=== PATIENT | male | born 1975 | race Caucasian/White ===

== ENCOUNTER 2017-05-02 20:26 | Inpatient (IN) | payer MEDICAID ==
[2017-05-02 21:08] VITALS: BMI 20.3
--- NOTE | 2017-05-02 21:15 | C.PDOC ---
Time Seen by Provider: 05/02/17 21:14 Chief Complaint (Nursing): Substance Abuse Past Medical History Vital Signs: Last Vital Signs Temp 97.9 F 05/02/17 21:08 Pulse 60 05/02/17 21:08 Resp 20 05/02/17 21:08 BP 117/62 05/02/17 21:08 Pulse Ox 95 05/02/17 21:08 - Medical History PMH: Denies: Depression - [facility] Procedures INJECT/INFUSE NEC (12/08/13) - Social History Hx Alcohol Use: No Hx Substance Use: No - Immunization History Hx Tetanus Toxoid Vaccination: No Hx Influenza Vaccination: No Hx Pneumococcal Vaccination: No ED Course And Treatment O2 Sat by Pulse Oximetry: 95 Disposition Counseled Patient/Family Regarding: Studies Performed, Diagnosis - Disposition Disposition Time: 21:15
--- NOTE | 2017-05-02 21:40 | C.PDOC ---
History Of Present Illness 42 year old male presents to the ED requesting detox for heroin. 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 Patient has sutures in his head that he states has had for approximately 2 months. Patient denies SI/HI, hallucinations, physical complaints. Time Seen by Provider: 05/02/17 21:14 Chief Complaint (Nursing): Substance Abuse History Per: Patient History/Exam Limitations: no limitations Onset/Duration Of Symptoms: Days Current Symptoms Are (Timing): Still Present Suicide/Self Injury Attempted (Context): None Modifying Factor(s): Other (Heroin) Associated Symptoms: denies: Depression, Suicidal Thoughts, Suicidal Plan Involuntary Hold By: None Recent travel outside of the [place]: No Additional History Per: Patient Past Medical History Reviewed: Historical Data, Nursing Documentation, Vital Signs Vital Signs: Last Vital Signs Temp 97.4 F L 05/02/17 23:30 Pulse 57 L 05/02/17 23:30 Resp 16 05/02/17 23:30 BP 98/62 L 05/02/17 23:30 Pulse Ox 98 05/02/17 23:30 - Medical History PMH: No Chronic Diseases Denies: Depression Surgical History: No Surg Hx - [facility] Procedures INJECT/INFUSE NEC (12/08/13) Family History: States: Unknown Family Hx - Social History Hx Alcohol Use: No Hx Substance Use: No - Immunization History Hx Tetanus Toxoid Vaccination: No Hx Influenza Vaccination: No Hx Pneumococcal Vaccination: No Review Of Systems Constitutional: Negative for: Fever, Chills Cardiovascular: Negative for: Chest Pain Respiratory: Negative for: Shortness of Breath Gastrointestinal: Negative for: Nausea, Vomiting, Abdominal Pain Skin: Negative for: Rash Neurological: Negative for: Weakness, Numbness, Headache Psych: Negative for: Depression, Suicidal ideation Physical Exam - Physical Exam Appears: Non-toxic, No Acute Distress Skin: Normal Color, Warm, Dry Head: Atraumatic, Normacephalic, Other (Sutures in forehead noted) Nose: No Discharge, No Deformity Oral Mucosa: Moist Neck: Normal ROM, Supple Chest: Symmetrical Cardiovascular: Rhythm Regular, No Murmur Respiratory: Normal Breath Sounds, No Rales, No Rhonchi, No Wheezing Gastrointestinal/Abdominal: Soft, No Tenderness, No Guarding, No Rebound Extremity: Normal ROM, No Deformity, No Swelling Neurological/Psych: Oriented x3, Normal Speech, Normal Cognition Gait: Steady ED Course And Treatment - Laboratory Results Result Diagrams: 05/02/17 21:41 05/02/17 21:41 O2 Sat by Pulse Oximetry: 95 (On RA) Pulse Ox Interpretation: Normal Medical Decision Making Medical Decision Making: Impression: heroin detox Plan: * Labs * UA * Crisis evaluation Disposition - Disposition Disposition Time: 23:50 Condition: STABLE Forms: [facility] ([facility]) - Clinical Impression Clinical Impression: Drug abuse, Drug dependence - Scribe Statement The provider has reviewed the documentation as recorded by the Scribe Seng Hightower All medical record entries made by the Scribe were at my direction and personally dictated by me. I have reviewed the chart and agree that the record accurately reflects my personal performance of the history, physical exam, medical decision making, and the department course for this patient. I have also personally directed, reviewed, and agree with the discharge instructions and disposition. Suture Removal/Wound Check - Time Time: 21:43 - Historian Historian: Patient - Chief Complaints Chief complaint: Other - Treated at Treated at:: Other ED Procedure:: Laceration repair Antibiotics prescribed:: No - Symptoms since last ED visit Symptoms since last ED visit:: None - Location Right/Left:: head - Radiation Radiation: None - Severity of pain Severity Current: None Pain scale: 0 Current Severity:: 0
[2017-05-02 21:45] LABS: BASO # 0.1 K/uL (0.0-0.2); EOS # 0.2 K/uL (0.0-0.7); HEMOGLOBIN 13.8 g/dL (12.0-18.0); LYMPH # 2.4 K/uL (1.0-4.3); LYMPH % 23.3 % (20.0-40.0); MEAN CELL VOLUME 90.7 fL (80.0-94.0); MEAN CORPUSCULAR HEMOGLOBIN 30.4 pg (27.0-31.0); MEAN CORPUSCULAR HGB CONC 33.6 g/dL (33.0-37.0); MEAN PLATELET VOLUME 8.4 fL (7.2-11.7); MONO # 0.6 K/uL (0.0-0.8); MONO % 5.9 % (0.0-10.0); NEUT # 6.9 K/uL (1.8-7.0); NEUT % 67.8 % (50.0-75.0); NRBC % 0.1 % (0.0-2.0); RBC 4.53 Mil/uL (4.40-5.90); RED CELL DISTRIBUTION WIDTH 13.4 % (11.5-14.5); WHITE BLOOD COUNT 10.2 K/uL (4.8-10.8)
[2017-05-02 21:57] LABS: ALB/GLOB RATIO 1.1 (1.0-2.1); ALBUMIN 3.7 g/dL (3.5-5.0); ALT/SGPT 27 U/L (21-72); AST/SGOT 17 U/L (17-59); BLOOD UREA NITROGEN 13 mg/dL (9-20); CALCIUM 8.4 mg/dl (8.6-10.4); GFR AFRICAN-AMERICAN > 60; GFR NON-AFRICAN AMERICAN > 60
[2017-05-02 23:06] LABS: URINE BACTERIA RARE (<OCC); URINE BILIRUBIN NEGATIVE (NEGATIVE); URINE BLOOD NEGATIVE (NEGATIVE); URINE CLARITY Hazy (Clear); URINE COLOR Yellow (YELLOW); URINE GLUCOSE (UA) NORMAL (Normal); URINE LEUKOCYTE ESTERASE NEG Leu/uL (Negative); URINE NITRATE NEGATIVE (NEGATIVE); URINE PROTEIN NEGATIVE (NEGATIVE); URINE UROBILINOGEN NORMAL mg/dL (0.2-1.0)
[2017-05-02 23:17] LABS: BARBITURATES, UR NEGATIVE (NEGATIVE); BENZODIAZEPINES, UR NEGATIVE (NEGATIVE); PHENCYCLIDINE, UR NEGATIVE (NEGATIVE)
[2017-05-02 23:18] LABS: OPIATES, UR POSITIVE (NEGATIVE)
--- NOTE | 2017-05-03 08:34 | PCM.PSYCH ---
Initial Psychiatric Evaluation - Initial Psychiatric Evaluation Type of Admission: Voluntary Legal Status: Capacity Chief Complaint (in patient's own words): "Heroin" History of Present Illness and Precipitating Events: The patient is seen, chart reviewed and case discussed. This is a 42-year-old Syriac [place]ian male, from his , has no children, unemployed and lives with his ex-. The patient is here for heroin detox; using 10 backs intranasally for the last 10 years. He rarely uses inhalers, alcohol, cocaine, Xanax and a little bit more marijuana. His last heroin use was yesterday and he started to have wdw sxs. This is his third detox and he was in [facility] rehab 2 years ago. Past psych history: Denies past or present psych symptoms or history. Family psych history: Denies Medical history: Denies Current Medications: Active Medications Generic Name Dose Route Start Last Admin Trade Name Freq PRN Reason Stop Dose Admin Clonidine HCl 0.1 mg 05/03/17 01:49 Catapres PO Q8H PRN Withdrawal Symptoms Hydroxyzine HCl 25 mg 05/03/17 01:49 Atarax PO Q6H PRN Anxiety Ondansetron HCl 4 mg 05/03/17 01:50 Zofran Odt PO Q8H PRN Nausea/Vomiting Trazodone HCl 50 mg 05/03/17 01:49 05/03/17 02:10 Desyrel PO 50 mg HS PRN Administration Insomnia Past Psychiatric History - Past Psychiatric History Previous Treatment History: None Pertinent Medical Hx (Current Medical&Sleep Prob, Allergies): Allergies Allergy/AdvReac Type Severity Reaction Status Date / Time No Known Allergies Allergy Verified 05/02/17 21:05 No Known Home Med 12/17/16 Review of Systems - Neurological Neurological: UNREMARKABLE - Psychiatric Psychiatric: Abnormal Sleep Pattern, Anxiety. absent: Depression, Homicidal Ideation, Hopelessness, Paranoia, Suicidal Ideation Mental Status Examination - Personal Presentation Personal Presentation: Looks stated age - Affect Affect: Constricted - Motor Activity Motor Activity: Calm - Reliability in Providing Information Reliability in Providing Information: Good - Speech Speech: Organized - Mood Mood: Anxious - Formal Thought Process Formal Thought Process: No Impairment - Cognitive Functions Orientation: Person, Place, Situation, Time Sensorium: Alert Attention/Concentration: Attentive Estimate of Intelligence: Average Judgement: Intact, as evidence by: Insight regarding need for hospitalization Memory: Recent intact, as evidence by: Ability to recall events of the day, Remote intact, as evidenced by: Abilit to recall sig. life events - Risk Risk: Diminished functioning - Strength & Assets Inventory Strength & Assets Inventory: Cooperative - Limitations Limitations: Living alone DSM 5 DX - DSM 5 DSM 5 Diagnosis: Opioid withdrawal opioid use d/o - severe Cannabis use d/o- moderate - Recommended/Plan of Treatment Treatment Recommendations and Plan of Treatment: Opioid detox As needed medications All risks, benefits and alternatives of the meds discussed, and the pt agreed and understood. Attend groups and activities Supportive therapy and psychoeducation [place] for abstinence CBT for relapse prevention Encourage MAT Refer to rehab or IOP, and self-help groups Smoking cessation with [place] Nicotine patch 34 min Projected ELOS: 4-5 days Prognosis: good with treatment - Smoking Cessation Smoking Cessation Initiated: Yes
--- NOTE | 2017-05-03 12:40 | PCM.BM ---
<Caprice Núñez - Last Filed: 05/03/17 12:38> Treatment Plan Problems - Problems identified on initial assessmt potential for opiate withdrawal Date Initiated: 05/03/17 Time Initiated: 12:39 Assessment reference: NA Status: Active anxiety Date Initiated: 05/03/17 Time Initiated: 12:40 Assessment reference: NA Status: Active - Milieu Protocol Maintain good personal hygiene: daily Encourage regular showers, daily Remind patient to perform daily oral care, daily Assist patient to perform ADL's Conduct patient checks and document Observation sheet: Q15 minutes Maintain personal safety: every shift Educate patient to report safety concerns to staff, every shift Monitor environment for contraband/sharps Medication safety: Monitor for expected outcome, potential side effects: every shift, Assess barriers to learning: every shift, Assess readiness for medication education: every shift Milieu Narrative: Opioid detox As needed medications All risks, benefits and alternatives of the meds discussed, and the pt agreed and understood. Attend groups and activities Supportive therapy and psychoeducation [place] for abstinence CBT for relapse prevention Encourage MAT Refer to rehab or IOP, and self-help groups Smoking cessation with [place] Nicotine patch 34 min Discharge/Continuing Care - Treatment Team Participation Patient/Family/SO Statement: Opioid detox As needed medications All risks, benefits and alternatives of the meds discussed, and the pt agreed and understood. Attend groups and activities Supportive therapy and psychoeducation [place] for abstinence CBT for relapse prevention Encourage MAT Refer to rehab or IOP, and self-help groups Smoking cessation with [place] Nicotine patch 34 min <Daniel Hallman - Last Filed: 05/04/17 23:10> - Diagnosis (1) Opioid use disorder, severe, dependence Status: Acute Interventions: 05/04/17 23:10 * Assess 7x/week regarding severity of withdrawal * Educate regarding risks, benefits, side effects and alternatives of medications * Use Motivational Interviewing for abstinence * Use CBT for relapse prevention * Medication management for withdrawal symptoms * Encourage medication assisted treatment *
--- NOTE | 2017-05-04 13:45 | PCM.PYCHPN ---
Psychiatric Progress Note - Psychiatric Progress Note Patient seen today, length of contact: 15 minutes Patient Chief Complaint: "Im doing okay" Problems Identified/Issues Discussed: The pt is seen, chart reviewed, case discussed with staff. Support given, CBT and [place] used briefly No new symptoms reported, improving slowly and needs more time No SEs from medications, risks discussed. After care discussed. He is planning on staying with his ex- and would like to go to [facility] for outpatient therapy. Medication Change: Yes (detox changes daily ) Medical Record Reviewed: Yes Mental Status Examination - Cognitive Function Orientation: Person, Place, Situation, Time Memory: Intact Attention: WNL Concentration: WNL Association: [facility] Fund of Knowledge: [facility] Decription of patient's judgement and insights: good - Mood Mood: Neutral - Affect Affect: Broad - Speech Speech: Appropriate - Language Language: Word Retrieval - Formal Thought Process Formal Thought Process: No Impairment - Suicidal Ideation Suicidal Ideation: No - Homicidal Ideation Homicidal Ideation: No Goal/Treatment Plan - Goal/Treatment Plan Need for Continued Stay: Remain at risks for inpatient hospitalization, Discharge may exacerbated symptoms Progress Toward Problem(s) and Goals/Treatment Plan: Opioid detox As needed medications All risks, benefits and alternatives of the meds discussed, and the pt agreed and understood. Attend groups and activities Supportive therapy and psychoeducation [place] for abstinence CBT for relapse prevention Encourage MAT Refer to rehab or IOP, and self-help groups Smoking cessation with [place] Nicotine patch Estimated Date of D/C: 05/06/17 - Smoking Cessation Smoking Cessation Initiated: Yes
[2017-05-06 05:18] VITALS: O2SAT 98
--- NOTE | 2017-05-06 08:52 | PCM.PYCHDC ---
Mental Status Examination - Mental Status Examination Orientation: Person, Place, Situation, Time Memory: Intact Mood: Neutral Affect: Broad Speech: Appropriate Attention: WNL Concentration: WNL Language: Word Retrieval Association: WNL Fund of Knowledge: WNL Formal Thought Process: No Impairment Description of patient's judgement and insight: good Suicidal Ideation: No Current Homicidal Ideation?: No Discharge Summary - Discharge Note Reason for Hospitalization: Opioid withdrawal Consultations:: List each consultation separately and include: 1. Reason for request. 2. Findings. 3. Follow-up Summary of Hospital Course include:: 1. Description of specific treatment plan utilized for patients during their course of treatmen. 2. Summarize the time- course for resolution of acute symptoms and/or regressed behaviors. 3. Describe issues identified and worked on during hospitalization. 4. Describe medication utilized. 5. Describe medical problems identified and treated. 6. Reassessment of suicide risk Summary of Hospital Course: The patient is seen, chart reviewed and case discussed. This is a 42-year-old Sammarinese Pakistani male, from his , has no children, unemployed and lives with his ex-. The patient is here for heroin detox; using 10 backs intranasally for the last 10 years. He rarely uses inhalers, alcohol, cocaine, Xanax and a little bit more marijuana. His last heroin use was yesterday and he started to have wdw sxs. This is his third detox and he was in [facility] rehab 2 years ago. Past psych history: Denies past or present psych symptoms or history. Family psych history: Denies Medical history: Denies Hospital Course: The pt was admitted and started on treatment with psychotherapy, support, psychoeducation and medications. IN and CBT used. The pt attended groups and activities, as well as milieu therapy. All the risks and benefits of medications are discussed and the patient understood and agreed. The pt improved with the treatments provided. After care discussed with the patient. The patient is very positive and optimistic about his future. He plans to go to [facility] for IOP. - Diagnosis (1) Opioid use disorder, severe, dependence Status: Acute - Final Diagnosis (DSM 5) Condition upon Discharge: STABLE Disposition: HOME/ ROUTINE Follow-up Treatment Plan: Continue below medications after discharge. Follow after care plan as discussed. Use relapse prevention skills Return to ER or call 911 if suicidal, homicidal or symptoms relapse. Stay away from stress, alcohol and drugs. See primary doctor regularly and get labs. Prescriptions/Medication Reconciliation: traZODone [Desyrel] 100 mg PO HS PRN #30 tab PRN Reason: Insomnia - Smoking Cessation Smoking Cessation Medication prescribed: No
[2017-05-06 09:12] VITALS: BP 102/66; PULSE 98; RESP 20; TEMP 97.8
--- NOTE | 2017-05-06 14:02 | PCM.PYCHPN ---
Psychiatric Progress Note - Psychiatric Progress Note Patient seen today, length of contact: 16 minutes Patient Chief Complaint: "I am doing much better" Problems Identified/Issues Discussed: The pt is seen, chart reviewed, case discussed with staff. Support given, CBT and [place] used briefly No new symptoms reported, improving slowly and needs more time. He is very positive today and optimistic about his future. He is sleeping well and eating. He states "I fell great". No SEs from medications, risks discussed. After care discussed. He is planning on staying with his ex- and would like to go to [facility] for outpatient therapy. He also plans to go to IOP at [facility]. Medication Change: Yes (detox changes daily ) Medical Record Reviewed: Yes Mental Status Examination - Cognitive Function Orientation: Person, Place, Situation, Time Memory: Intact Attention: WNL Concentration: WNL Association: WNL Fund of Knowledge: [facility] Decription of patient's judgement and insights: good - Mood Mood: Neutral - Affect Affect: Broad - Speech Speech: Appropriate - Language Language: Word Retrieval - Formal Thought Process Formal Thought Process: No Impairment - Suicidal Ideation Suicidal Ideation: No - Homicidal Ideation Homicidal Ideation: No Goal/Treatment Plan - Goal/Treatment Plan Need for Continued Stay: Remain at risks for inpatient hospitalization, Discharge may exacerbated symptoms Progress Toward Problem(s) and Goals/Treatment Plan: Opioid detox As needed medications All risks, benefits and alternatives of the meds discussed, and the pt agreed and understood. Attend groups and activities Supportive therapy and psychoeducation [place] for abstinence CBT for relapse prevention Encourage MAT Refer to rehab or IOP, and self-help groups Smoking cessation with [place] Nicotine patch Estimated Date of D/C: 05/06/17 - Smoking Cessation Smoking Cessation Initiated: Yes
== END 2017-05-06 11:00 | disposition home or self-care (01) | DRG 897 ==
LOC: C.ER 20:26 → C.7D 05-03 00:26
PROVIDERS: ADMIT Psychiatry & Neurology Psychiatry; ATTEND Psychiatry & Neurology Psychiatry
PROC: HZ2ZZZZ Detoxification Services for Substance Abuse Treatment (ICD-10-PCS; principal; 2017-05-03)
DX: F11.23 Opioid dependence with withdrawal (principal); F17.219 Nicotine dependence, cigarettes, with unspecified nicotine-induced disorders; F12.90 Cannabis use, unspecified, uncomplicated; Z68.20 Body mass index [BMI] 20.0-20.9, adult

== ENCOUNTER 2017-08-18 15:48 | Inpatient (IN) | payer MEDICAID ==
[2017-08-18 15:48] VITALS: BMI 20.3
--- NOTE | 2017-08-18 16:21 | C.PDOC ---
History Of Present Illness 42 y/o male presents to ED requesting heroin detox. Patient reports last use this morning and denies suicidal ideation, homicidal ideation, auditory of visual hallucinations. No other physical complaints at this time. Time Seen by Provider: 08/18/17 16:15 Chief Complaint (Nursing): Substance Abuse History Per: Patient Onset/Duration Of Symptoms: Days Current Symptoms Are (Timing): Still Present Suicide/Self Injury Attempted (Context): None Past Medical History Reviewed: Historical Data, Nursing Documentation, Vital Signs Vital Signs: Last Vital Signs Temp 98.8 F 08/18/17 19:48 Pulse 75 08/18/17 19:48 Resp 20 08/18/17 19:48 BP 119/61 08/18/17 19:48 Pulse Ox 98 08/18/17 19:48 - Medical History PMH: No Chronic Diseases Surgical History: No Surg Hx - [facility] Procedures DETOXIFICATION SERVICES FOR SUBSTANCE ABUSE TREATMENT (05/03/17) INJECT/INFUSE NEC (12/08/13) Family History: States: No Known Family Hx - Social History Hx Alcohol Use: No Hx Substance Use: Yes - Immunization History Hx Tetanus Toxoid Vaccination: No Hx Influenza Vaccination: No Hx Pneumococcal Vaccination: No Review Of Systems Except As Marked, All Systems Reviewed And Found Negative. Constitutional: Negative for: Fever, Chills Cardiovascular: Negative for: Chest Pain, Palpitations Respiratory: Negative for: Shortness of Breath Gastrointestinal: Negative for: Nausea, Vomiting Psych: Negative for: Depression, Suicidal ideation Physical Exam - Physical Exam Appears: Non-toxic, No Acute Distress Skin: Warm, Dry, No Rash Head: Atraumatic, Normacephalic Eye(s): bilateral: Normal Inspection Oral Mucosa: Moist Neck: Normal ROM, Supple Cardiovascular: Rhythm Regular Respiratory: Normal Breath Sounds, No Rales, No Rhonchi, No Wheezing Gastrointestinal/Abdominal: Soft, No Tenderness, No Guarding, No Rebound Neurological/Psych: Oriented x3, Normal Speech, Normal Cognition ED Course And Treatment - Laboratory Results Result Diagrams: 08/18/17 16:50 08/18/17 16:50 O2 Sat by Pulse Oximetry: 97 (RA) Pulse Ox Interpretation: Normal Medical Decision Making Medical Decision Making: Patient is pre screened, pending medical clearance for detox bed 1746: Patient medically cleared for detox admission Disposition - Disposition Disposition: HOSPITALIZED Disposition Time: 08:00 Condition: STABLE - Clinical Impression Clinical Impression: Opioid use disorder, severe, dependence - Scribe Statement The provider has reviewed the documentation as recorded by the Lorriibrizwana Weinberg All medical record entries made by the Lorriibe were at my direction and personally dictated by me. I have reviewed the chart and agree that the record accurately reflects my personal performance of the history, physical exam, medical decision making, and the department course for this patient. I have also personally directed, reviewed, and agree with the discharge instructions and disposition. Decision To Admit - Pt Status Changed To: Hospital Disposition Of: Inpatient - Admit Certification Admit to Inpatient:: After my assessment, the patient will require hospitalization for at least two midnights. This is because of the severity of symptoms shown, intensity of services needed, and/or the medical risk in this patient being treated as an outpatient. - InPatient: Physician Admission Certification: I certify that this patient requires 2 or more midnights of care for the following reason:: needs detx - . Bed Request Type: Detox Admitting Physician: Mariano Daniels Patient Diagnosis: Opioid use disorder, severe, dependence
[2017-08-18 16:55] LABS: BASO # 0.1 K/uL (0.0-0.2); BASO % 0.8 % (0.0-2.0); EOS # 0.1 K/uL (0.0-0.7); HEMOGLOBIN 13.9 g/dL (12.0-18.0); LYMPH # 2.8 K/uL (1.0-4.3); LYMPH % 22.1 % (20.0-40.0); MEAN CORPUSCULAR HEMOGLOBIN 31.1 pg (27.0-31.0); MEAN CORPUSCULAR HGB CONC 34.1 g/dL (33.0-37.0); MONO # 0.8 K/uL (0.0-0.8); MONO % 5.8 % (0.0-10.0); NEUT % 70.3 % (50.0-75.0); RBC 4.48 Mil/uL (4.40-5.90); RED CELL DISTRIBUTION WIDTH 13.8 % (11.5-14.5); WHITE BLOOD COUNT 12.9 K/uL (4.8-10.8)
[2017-08-18 17:08] LABS: ALB/GLOB RATIO 1.2 (1.0-2.1); ALT/SGPT 25 U/L (21-72); AST/SGOT 34 U/L (17-59); BLOOD UREA NITROGEN 12 mg/dL (9-20); CALCIUM 8.9 mg/dl (8.6-10.4); GFR AFRICAN-AMERICAN > 60; GFR NON-AFRICAN AMERICAN > 60
[2017-08-18] MEDS ORDERED: Potassium Chloride 20 mEq ER Tab PO STA (17:09)
[2017-08-18 17:27] LABS: URINE BACTERIA FEW (<OCC); URINE BILIRUBIN NEGATIVE (NEGATIVE); URINE BLOOD NEGATIVE (NEGATIVE); URINE CLARITY Hazy (Clear); URINE COLOR Yellow (YELLOW); URINE GLUCOSE (UA) NORMAL (Normal); URINE LEUKOCYTE ESTERASE NEG Leu/uL (Negative); URINE PROTEIN NEGATIVE (NEGATIVE)
[2017-08-18] MEDS ORDERED: Potassium Chloride 20 mEq ER Tab PO ONE (17:37)
--- NOTE | 2017-08-18 17:45 | RAD ---
HISTORY: psych COMPARISON: No prior. TECHNIQUE: Chest PA and lateral FINDINGS: LUNGS: No acute infiltrate identified bilaterally. Hyperinflation is identified combine with flattened diaphragms and somewhat increased anteroposterior chest diameter which may indicate COPD although given a patient of 42 years, this may also reflect exuberant inspiratory effort. Clinically correlate further nevertheless. PLEURA: No significant pleural effusion identified. No pneumothorax apparent. CARDIOVASCULAR: Normal. OSSEOUS STRUCTURES: No significant abnormalities. VISUALIZED UPPER ABDOMEN: Normal. OTHER FINDINGS: None. IMPRESSION: Hyperinflation may be a function of exuberant inspiratory effort but COPD is not excluded and clinical correlation is advised. No acute infiltrate bilaterally.
[2017-08-18 17:46] LABS: BARBITURATES, UR NEGATIVE (NEGATIVE); BENZODIAZEPINES, UR NEGATIVE (NEGATIVE); PHENCYCLIDINE, UR NEGATIVE (NEGATIVE)
[2017-08-18 17:51] LABS: OPIATES, UR POSITIVE (NEGATIVE)
--- NOTE | 2017-08-18 20:36 | PCM.BM ---
<Roxy Smithn - Last Filed: 08/18/17 20:33> Treatment Plan Problems - Problems identified on initial assessmt Substance Abuse Date Initiated: 08/18/17 Time Initiated: 20:34 Assessment reference: NA Status: Active Treatment assets and liabiliti Patient Assests: adapts well, cooperative, educated, ADL independent, physically healthy, good support system, negotiates basic needs, cognitively intact Patient Liabilities: live alone, financial problems, substance abuse - Milieu Protocol Maintain good personal hygiene: daily Encourage regular showers, daily Remind patient to perform daily oral care, daily Assist patient to perform ADL's Conduct patient checks and document Observation sheet: Q15 minutes Maintain personal safety: every shift Educate patient to report safety concerns to staff, every shift Monitor environment for contraband/sharps Medication safety: Monitor for expected outcome, potential side effects: every shift, Assess barriers to learning: every shift, Assess readiness for medication education: every shift <Daniel Hallman - Last Filed: 08/19/17 22:31> - Diagnosis (1) Opioid use disorder, severe, dependence Status: Acute Interventions: 08/19/17 22:31 * Assess 7x/week regarding severity of withdrawal * Educate regarding risks, benefits, side effects and alternatives of medications * Use Motivational Interviewing for abstinence * Use CBT for relapse prevention * Medication management for withdrawal symptoms * Encourage medication assisted treatment * <Radha Fischer - Last Filed: 08/20/17 10:19> Family Contact Family involvement: Famliy/SO not involved - Goals for Treatment Patient goals for treatment: Complete detox and travel out of the country to reunite with parents in [facility]. Discharge/Continuing Care - Education Needs Education Needs: Family Medication, Family Diagnosis/Disease Process, Family Coping Skills, Family Anger Management skills, Family Placement options, Family Community resources, Patient Medication, Patient Diagnosis/Disease Process, Patient Coping Skills, Patient Anger Management skills, Patient Placement options, Patient Community resources - Discharge Discharge Criteria: No longer exhibiting s/s of withdrawal, Reduction of target symptoms Discharge to:: Home, With Family - Treatment Team Participation Patient/Family/SO Statement: 08/20/17 10:18 "I'm gonna go to [facility] and probably go to a program there. My parents want to keep an eye on me. I have to go." Discussed with Family/SO: No Was Patient/Family/SO present at Treatment Team Meeting: Yes
[2017-08-19] MEDS ORDERED: Aluminum Hydroxide/Magnesium Hydroxide Susp (30 mL) PO PRN (10:01)
--- NOTE | 2017-08-19 14:52 | PCM.PSYCH ---
Initial Psychiatric Evaluation - Initial Psychiatric Evaluation Type of Admission: Voluntary Legal Status: Capacity Chief Complaint (in patient's own words): "I need help with heroin detox" History of Present Illness and Precipitating Events: This is a 42-year-old [place] male patient who presents to the ED requesting heroin detox. Patient reports last using heroin in the morning of admission and denies suicidal ideation, homicidal ideation, auditory or visual hallucinations. The patient is here for heroin detox; using 10 bags a day intranasally for the last 10 years. He rarely uses inhalers, alcohol, cocaine, Xanax, or marijuana. Patient is currently not having withdrawal symptoms. This is his 4th detox and he was in [facility] 2 years ago. His last admission here was in April. Patient was supposed to go to a rehab program but relapsed right after being discharged. He is currently from his , has no children, unemployed and lives with ex-. Patient lost his apartment 5 days ago and is currently homeless. His ex- has a substance abuse problem as well and is currently living on the streets. Patient reports his parents recently contacted him and asking for him to return to [facility]. Patients parents have sent tickets to the patient. Flight is this Thursday evening. Patient is undecided about going back since he knows he will continue abusing drugs in [facility]. His substance abuse problem started 10 years ago in [facility]. Detox Hx: 4 times Rehab Hx: [facility] 2 years ago Medical Hx: denies Surgical Hx: denies Medications: denies Psych Hx: denies Fam Hx: denies Allergies: no known allergies Current Medications: Active Medications Generic Name Dose Route Start Last Admin Trade Name Freq PRN Reason Stop Dose Admin Al Hydrox/Mg Hydrox/Simethicone 30 ml 08/19/17 10:01 Maalox 30 Ml PO TID PRN Indigestion / Heartburn Clonidine HCl 0.1 mg 08/19/17 10:01 Catapres PO Q8 PRN COWS Score More or Equal to 5 Hydroxyzine HCl 25 mg 08/18/17 22:08 08/19/17 09:29 Atarax PO 25 mg Q6H PRN Administration Anxiety Loperamide HCl 2 mg 08/19/17 10:01 Imodium PO Q8 PRN Diarrhea Methadone HCl 20 mg 08/20/17 10:00 Methadone PO 08/24/17 09:59 Q24H AGUILA Taper Nicotine 1 patch 08/19/17 10:00 08/19/17 10:31 Nicoderm Cq TD 1 patch DAILY AGUILA Administration Ondansetron HCl 4 mg 08/19/17 10:01 Zofran Tab PO Q8 PRN Nausea/Vomiting Pneumococcal Polyvalent Vaccine 0.5 ml 08/21/17 10:00 Pneumovax 23 Vaccine IM 08/21/17 10:01 .ONCE ONE Trazodone HCl 50 mg 08/18/17 21:50 08/18/17 22:20 Desyrel PO 50 mg HS PRN Administration Insomnia Past Psychiatric History - Past Psychiatric History Previous Treatment History: None Pertinent Medical Hx (Current Medical&Sleep Prob, Allergies): Allergies Allergy/AdvReac Type Severity Reaction Status Date / Time No Known Allergies Allergy Verified 08/18/17 16:13 No Known Home Med 08/18/17 Review of Systems - Review of Systems All systems: reviewed and no additional remarkable complaints except - Neurological Neurological: UNREMARKABLE - Psychiatric Psychiatric: Abnormal Sleep Pattern, Anxiety. absent: Anhedonia, Auditory Hallucinations, Depression, Hallucinations, Homicidal Ideation, Suicidal Ideation, Visual Hallucinations, Tactile Hallucinations Mental Status Examination - Personal Presentation Personal Presentation: Looks stated age - Affect Affect: Broad - Motor Activity Motor Activity: Calm - Reliability in Providing Information Reliability in Providing Information: Good - Speech Speech: Organized - Mood Mood: Neutral - Formal Thought Process Formal Thought Process: No Impairment - Cognitive Functions Orientation: Person, Place, Time Sensorium: Alert Attention/Concentration: Attentive Judgement: Intact, as evidence by: Insight regarding need for hospitalization Memory: Recent intact, as evidence by: Ability to recall events of the day, Remote intact, as evidenced by: Abilit to recall sig. life events - Risk Risk: Withdrawal, Diminished functioning - Strength & Assets Inventory Strength & Assets Inventory: Cooperative - Limitations Limitations: Living alone DSM 5 DX - DSM 5 DSM 5 Diagnosis: Opioid Withdrawal Opioid Use Disorder Cocaine use d/o - severe - Recommended/Plan of Treatment Treatment Recommendations and Plan of Treatment: Methadone detox As needed medications Attend groups and activities Supportive therapy and psychoeducation [place] for abstinence CBT for relapse prevention Encourage MAT Refer to rehab or IOP Attend self-help groups as well 30 min Projected ELOS: 5 days - Smoking Cessation Smoking Cessation Initiated: Yes
--- NOTE | 2017-08-20 14:19 | PCM.PYCHPN ---
Psychiatric Progress Note - Psychiatric Progress Note Patient seen today, length of contact: 15 min Patient Chief Complaint: "I am having mild withdrawal symptoms" Problems Identified/Issues Discussed: Patient is seen and evaluated, chart reviewed, and discusses with the nurse. Patient report having mild withdrawal symptoms, mainly complaining about some nausea. Patient reports sleeping and eating well. Patient is actively participating in group therapy. Yesterday, patient said his parents have sent tickets to him for returning back to [facility] this Thursday. Today, patient has decided for sure he will return back to his home country and stay with his parents after discharge. His mood is good overall. Patient is compliant with medications and reports no side effects. Symptoms are improving but still needs more time to stabilize. Support therapy and psychoeducation were given. After case discussed. Medication Change: Yes (detox changes daily) Medical Record Reviewed: Yes Mental Status Examination - Cognitive Function Orientation: Person, Place, Time Memory: Intact Attention: WNL Concentration: WNL Association: WNL Fund of Knowledge: WNL - Mood Mood: Neutral - Affect Affect: Broad - Speech Speech: Appropriate - Formal Thought Process Formal Thought Process: No Impairment - Suicidal Ideation Suicidal Ideation: No - Homicidal Ideation Homicidal Ideation: No Goal/Treatment Plan - Goal/Treatment Plan Need for Continued Stay: Discharge may exacerbated symptoms, Severe functional impairment Progress Toward Problem(s) and Goals/Treatment Plan: Methadone detox As needed medications Attend groups and activities Supportive therapy and psychoeducation [place] for abstinence CBT for relapse prevention Encourage MAT Refer to rehab or IOP Attend self-help groups as well After care plan discussed with patient. Patient has decided to return to [facility] after discharge.
[2017-08-21 06:19] VITALS: O2SAT 98
[2017-08-21] MEDS ORDERED: Pneumococcal 23-Valent Vaccine IM ONE (10:00)
[2017-08-21 15:14] VITALS: BP 124/63; PULSE 97; RESP 20; TEMP 98.5
--- NOTE | 2017-08-21 15:15 | PCM.PYCHDC ---
Mental Status Examination - Mental Status Examination Orientation: Person, Place, Situation, Time Memory: Intact Mood: Anxious Affect: Constricted Speech: Appropriate Attention: WNL Concentration: Poor Association: WNL Fund of Knowledge: WNL Formal Thought Process: No Impairment Suicidal Ideation: No Current Homicidal Ideation?: No Discharge Summary - Discharge Note Reason for Hospitalization: Opioid detox Consultations:: List each consultation separately and include: 1. Reason for request. 2. Findings. 3. Follow-up Summary of Hospital Course include:: 1. Description of specific treatment plan utilized for patients during their course of treatmen. 2. Summarize the time- course for resolution of acute symptoms and/or regressed behaviors. 3. Describe issues identified and worked on during hospitalization. 4. Describe medication utilized. 5. Describe medical problems identified and treated. 6. Reassessment of suicide risk Summary of Hospital Course: He is seen today twice, once alone and once with the team. Case discussed On admission: This is a 42-year-old [place] male patient who presents to the ED requesting heroin detox. Patient reports last using heroin in the morning of admission and denies suicidal ideation, homicidal ideation, auditory or visual hallucinations. The patient is here for heroin detox; using 10 bags a day intranasally for the last 10 years. He rarely uses inhalers, alcohol, cocaine, Xanax, or marijuana. Patient is currently not having withdrawal symptoms. This is his 4th detox and he was in [facility] 2 years ago. His last admission here was in April. Patient was supposed to go to a rehab program but relapsed right after being discharged. He is currently from his , has no children, unemployed and lives with ex-. Patient lost his apartment 5 days ago and is currently homeless. His ex- has a substance abuse problem as well and is currently living on the streets. Patient reports his parents recently contacted him and asking for him to return to [facility]. Patients parents have sent tickets to the patient. Flight is this Thursday evening. Patient is undecided about going back since he knows he will continue abusing drugs in [facility]. His substance abuse problem started 10 years ago in [facility]. Detox Hx: 4 times Rehab Hx: [facility] 2 years ago Medical Hx: denies Surgical Hx: denies Medications: denies Psych Hx: denies Fam Hx: denies Allergies: no known allergies Hospital course: The pt was admitted and started on treatment with psychotherapy, support, psychoeducation and medications. CA and CBT used. The pt attended few groups and activities, as well as milieu therapy. All the risks and benefits of medications are discussed and the patient understood and agreed. The pt planned to go back to [facility] where his family lived, with a ticket for Thursday, 08/23, his parents bought. Then. today, Thursday, he started to make up stories like "I spoke to my parents and they changed the ticket to Thursday, and I have to take care of some business and see my girlfriend one last time" (His parents live in [facility] and there is no way he could have called them internationally from our floor. Risks of leaving AMA discussed, incl. relapse, OD and even . He understood but didn't even wait for Thursday AM, rather than Thursday, and left today AMA. - Final Diagnosis (DSM 5) Condition upon Discharge: STABLE DSM 5: Opioid Withdrawal Opioid Use Disorder Cocaine use d/o - severe Disposition: AGAINST MEDICAL ADVICE Follow-up Treatment Plan: Use relapse prevention skills Return to ER or call 911 if suicidal, homicidal or symptoms relapse. Stay away from stress, alcohol and drugs. See primary doctor regularly and get labs. - Smoking Cessation Smoking Cessation Medication prescribed: No - Antipsychotic Medications Pt discharged on 2 or more routine antipsychotic medications: No
== END 2017-08-21 15:00 | disposition left against medical advice (07) | DRG 894 ==
LOC: C.ER 15:48 → C.7D 19:13
PROC: HZ2ZZZZ Detoxification Services for Substance Abuse Treatment (ICD-10-PCS; principal; 2017-08-18)
PROC: HZ59ZZZ Individual Psychotherapy for Substance Abuse Treatment, Supportive (ICD-10-PCS; 2017-08-18)
PROC: HZ46ZZZ Group Counseling for Substance Abuse Treatment, Psychoeducation (ICD-10-PCS; 2017-08-18)
DX: F11.23 Opioid dependence with withdrawal (principal); F14.90 Cocaine use, unspecified, uncomplicated; F17.210 Nicotine dependence, cigarettes, uncomplicated; Z59.0 Homelessness